=== PATIENT | female | born 1995 | race Caucasian/White ===

== ENCOUNTER 2017-04-18 01:07 | Emergency (ER) | payer OTHER ==
[~2017-04-18] VITALS: Ht 157.5 cm; Wt 53.8 kg
[~2017-04-18 01:07] MED LIST: DOCUSATE SODIU100 MG PO; MOTRIN800 MG PO; PERCOCET 5/31 TABLET PO; PRENATAL TABLE1 EAC3 PO
[2017-04-18 01:46] LABS: HEMATOCRIT 40.5 % (36.0-46.0); MCH 27.8 PG (29.0-34.0); MCHC 33.6 G/DL (30.0-36.0); MCV 82.7 FL (83-99); MEAN PLAT.VOLUME 10.7 uM^3 (9.5-12.4); PLATELET COUNT 243 K/uL (156-360); RBC DIS.WIDTH-CV 11.7 % (11.8-14.6); RBC DIS.WIDTH-SD 34.5 % (39-53); WHITE BLOOD COUNT 14.3 K/uL (4.1-10.2)
[2017-04-18 01:55] LABS: CHLORIDE 108 mEq/L (99-109); POTASSIUM 3.8 mEq/L (3.7-5.4); SODIUM 139 mEq/L (136-147)
[2017-04-18 01:57] LABS: GLUCOSE 136 mg/dL (70-99)
[2017-04-18 01:58] LABS: ANION GAP 9 MEQ/L (2-14)
[2017-04-18 01:59] LABS: TOTAL BILIRUBIN 0.3 mg/dL (0.0-1.0)
[2017-04-18 02:00] LABS: ALKALINE PHOSPHATASE 60 IU/L (3-129)
[2017-04-18 02:01] LABS: GFR ESTIMATE (CALCULATED) > 59 mL/min/
[2017-04-18 02:02] LABS: UREA NITROGEN (BUN) 8 mg/dL (9-23)
[2017-04-18 02:11] LABS: QUANTITATIVE HCG < 4.0 MIU/ML
[2017-04-18 04:17] LABS: ADD MIUA? YES; BILIRUBIN NEGATIVE; BLOOD NEGATIVE; COLOR YELLOW ((YELLOW)); GLUCOSE (STRIP) NEGATIVE; KETONES NEGATIVE; LEUKOCYTES TRACE; NITRITE NEGATIVE; PROTEIN (STRIP) NEGATIVE; UROBILINOGEN 0.2 MG/DL (0.2-1.0)
[2017-04-18 04:24] LABS: BACTERIA RARE /HPF; EPITHELIAL CELLS RARE /HPF; MUCUS 1+ /LPF; RED BLOOD CELLS 0-5 /HPF (0-5); UCUL ADDED? YES
[2017-04-18] MEDS ORDERED: ZOFRAN4 MG PO (04:42)
[2017-04-18] MEDS ORDERED: NORCO 5/3251 TABLET PO (04:42)
[2017-04-18 05:22] VITALS: BP 104/62
== END 2017-04-18 05:23 | disposition home or self-care (01) ==
LOC: EME 01:07
DX: N83.202 Unspecified ovarian cyst, left side (principal); Z91.040 Latex allergy status
CPT/HCPCS: 74177; 80053; 81003; 84702; 85027; J1885